=== PATIENT | male | born 1955 | race African-American/Black ===

== ENCOUNTER 2017-10-29 01:44 | Emergency (ER) | payer SELFPAY ==
[~2017-10-29] VITALS: Ht 165.1 cm; Wt 63.0 kg
[2017-10-29 01:47] VITALS: BP 122/81
== END 2017-10-29 05:00 | disposition left against medical advice (07) ==
LOC: ER 01:44
DX: Z53.21 Procedure and treatment not carried out due to patient leaving prior to being seen by health care provider (principal)